=== PATIENT | male | born 1985 | race Caucasian/White ===

== ENCOUNTER 2020-10-10 11:19 | Emergency (ER) | payer BC ==
[~2020-10-10] VITALS: Ht 167.6 cm; Wt 91.0 kg
[2020-10-10 11:34] VITALS: BP 164/73
[2020-10-10] MEDS ORDERED: OFLO5DRO4 EACH EAR (11:46)
[2020-10-10] MEDS ORDERED: T3 PO (23:40)
== END 2020-10-10 12:11 | disposition home or self-care (01) ==
LOC: ER 11:19
DX: H92.01 Otalgia, right ear (principal); J02.9 Acute pharyngitis, unspecified
CPT/HCPCS: 99281

== ENCOUNTER 2020-10-10 22:19 | Emergency (ER) | payer BC ==
[~2020-10-10] VITALS: Ht 167.6 cm; Wt 123.0 kg
[~2020-10-10 22:19] MED LIST: OFLO5DRO4 EACH EAR
[2020-10-10] MEDS ORDERED: HYDROCODONE/ACETAMINOPHEN 5/325MG TABLET PO ONE (23:30)
[2020-10-10] MEDS ORDERED: T3 PO (23:40)
[2020-10-11 00:30] VITALS: BP 135/82
== END 2020-10-11 01:10 | disposition home or self-care (01) ==
LOC: ER 22:19
DX: H60.91 Unspecified otitis externa, right ear (principal); E66.9 Obesity, unspecified; Z68.41 Body mass index [BMI] 40.0-44.9, adult
CPT/HCPCS: 99282